=== PATIENT | male | born 1980 | race African-American/Black ===

== ENCOUNTER 2020-04-10 15:16 | Inpatient (IN) | payer MEDICAID ==
[~2020-04-10] VITALS: Ht 175.3 cm; Wt 99.8 kg
[2020-04-10 19:16] LABS: Basophils # (auto) 0 10 ^3/uL (0-0.2); Eosinophils # (auto) 0.1 10 ^3/uL (0-0.8); Hemoglobin 12.4 g/dL (13.5-17.5); Monocytes # (auto) 1.1 10 ^3/uL (0-1.3)
[2020-04-10 19:17] LABS: Basophils % (auto) 0.3 % (0.0-2.0); Eosinophils % (auto) 1.1 % (0.0-7.0); Hematocrit 35.5 % (41.0-53.0); Lymphocytes # (auto) 1.9 10 ^3/uL (0.4-5.4); Lymphocytes % (auto) 16.7 % (10.0-50.0); Mean Corpuscular Hemoglobin 31.4 pg (28.0-32.0); Mean Corpuscular Volume 89.7 fL (80.0-100.0); Monocytes % (auto) 9.3 % (0.0-12.0); Neutrophils # (auto) 8.4 10 ^3/uL (1.6-8.6); Neutrophils % (auto) 72.6 % (37.0-80.0); Nucleated Red Blood Cells % 0.1 %; Platelet Count (auto) 466 10^3/uL (140-450); Red Blood Cells 3.96 10^6/uL (4.5-5.90); Red Cell Distribution Width 15.4 % (11.8-14.3); White Blood Cell 11.6 10^3/uL (4.4-10.8)
[2020-04-10] MEDS ORDERED: SODIUM CHLORIDE 0.9% 1,000 ML IV ONE (20:15)
[2020-04-10] MEDS ORDERED: CLINDAMYCIN 900MG IV 50 ML IV ONE (20:15)
[2020-04-10] MEDS ORDERED: cefTRIAXone 1GM/50ML D5W 50 ML IV ONE (20:15)
[2020-04-10] MEDS ORDERED: ACETAMINOPHEN/CODEINE#3 (300/30mg) TAB PO ONE (20:30)
[2020-04-10] MEDS ORDERED: ONDANSETRON HCL 4 MG/2 ML VIAL IV ONE (20:30)
[2020-04-10 22:19] LABS: Albumin 2.9 g/dL (3.4-5.0); Calcium 9.4 mg/dL (8.5-10.1); Potassium 4.1 mmol/L (3.5-5.1)
[2020-04-10 22:24] LABS: BUN/Creatinine Ratio 9.6; Bilirubin, Total 0.8 mg/dL (0.2-1.0); Total Protein 8.7 g/dL (6.4-8.2)
[2020-04-11] MEDS ORDERED: MORPHINE SULF INJ 2 MG/ML SYRINGE 1ML IV PRN (00:30)
[2020-04-11] MEDS ORDERED: ACETAMINOPHEN 325 MG TAB PO PRN (00:30)
[2020-04-11] MEDS ORDERED: NITROGLYCERIN 0.4 MG SL TAB SL PRN (00:30)
[2020-04-11] MEDS ORDERED: DOCUSATE SOD 100 MG CAP PO PRN (00:30)
[2020-04-11] MEDS: MORPHINE SULFATE 4 MG/ML SYR/VIAL IV PRN ×3 (03:23→20:36)
[2020-04-11] MEDS: ONDANSETRON HCL 4 MG/2 ML VIAL IV PRN ×3 (03:23→20:36)
[2020-04-11 03:36] LABS: Basophils # (auto) 0.1 10 ^3/uL (0-0.2); Basophils % (auto) 0.4 % (0.0-2.0); Eosinophils # (auto) 0.1 10 ^3/uL (0-0.8); Hematocrit 35.7 % (41.0-53.0); Hemoglobin 12.7 g/dL (13.5-17.5); Lymphocytes # (auto) 2.4 10 ^3/uL (0.4-5.4); Lymphocytes % (auto) 19.9 % (10.0-50.0); Mean Corpuscular Hemoglobin 31.8 pg (28.0-32.0); Mean Corpuscular Hgb Conc. 35.6 g/dL (32.0-36.0); Mean Corpuscular Volume 89.2 fL (80.0-100.0); Monocytes # (auto) 0.9 10 ^3/uL (0-1.3); Monocytes % (auto) 7.3 % (0.0-12.0); Neutrophils # (auto) 8.7 10 ^3/uL (1.6-8.6); Neutrophils % (auto) 71.4 % (37.0-80.0); Nucleated Red Blood Cells % 0.1 %; Platelet Count (auto) 536 10^3/uL (140-450); Red Blood Cells 4.01 10^6/uL (4.5-5.90); Red Cell Distribution Width 15.7 % (11.8-14.3); White Blood Cell 12.2 10^3/uL (4.4-10.8)
[2020-04-11 04:06] LABS: Calcium 9.2 mg/dL (8.5-10.1); Potassium 3.9 mmol/L (3.5-5.1)
[2020-04-11 04:12] LABS: Albumin 2.8 g/dL (3.4-5.0); BUN/Creatinine Ratio 8.4; Bilirubin, Total 0.7 mg/dL (0.2-1.0); Total Protein 8.4 g/dL (6.4-8.2)
[2020-04-11] MEDS: CLINDAMYCIN 600MG IV 50 ML IV SCH ×3 (06:00→22:15)
[2020-04-11] MEDS: FAMOTIDINE 20 MG TAB PO SCH ×2 (09:07→22:14)
[2020-04-11] MEDS: ENOXAPARIN SOD 40 MG/0.4 ML SYRINGE SC SCH (09:07)
[2020-04-11] MEDS: cefTRIAXone 1GM/50ML D5W 50 ML IV SCH (09:07)
[2020-04-11] MEDS: ZINC SULFATE 220mg CAP or TAB PO SCH (09:07)
[2020-04-11] MEDS: MULTIPLE VITAMIN TAB PO SCH (09:07)
[2020-04-11] MEDS: ASCORBIC ACID 500 MG TAB PO SCH ×2 (09:07→22:14)
[2020-04-11] MEDS: HYDROcodone-ACET 5/325MG TAB PO PRN ×2 (09:08→16:48)
[2020-04-11] MEDS: Ensure HIGH Protein Chocolate 8oz Bottle PO SCH (20:01)
[2020-04-12] MEDS: ONDANSETRON HCL 4 MG/2 ML VIAL IV PRN ×2 (01:50→17:42)
[2020-04-12] MEDS: MORPHINE SULFATE 4 MG/ML SYR/VIAL IV PRN ×3 (01:50→17:42)
[2020-04-12 05:35] LABS: Basophils # (auto) 0 10 ^3/uL (0-0.2); Eosinophils # (auto) 0.2 10 ^3/uL (0-0.8); Eosinophils % (auto) 1.9 % (0.0-7.0); Monocytes # (auto) 0.7 10 ^3/uL (0-1.3); Neutrophils # (auto) 8.1 10 ^3/uL (1.6-8.6); Red Cell Distribution Width 15.5 % (11.8-14.3)
[2020-04-12 05:38] LABS: Basophils % (auto) 0.4 % (0.0-2.0); Hematocrit 35.4 % (41.0-53.0); Hemoglobin 11.8 g/dL (13.5-17.5); Lymphocytes # (auto) 2.1 10 ^3/uL (0.4-5.4); Lymphocytes % (auto) 19.2 % (10.0-50.0); Mean Corpuscular Hgb Conc. 33.4 g/dL (32.0-36.0); Mean Corpuscular Volume 89.8 fL (80.0-100.0); Neutrophils % (auto) 72.5 % (37.0-80.0); Platelet Count (auto) 507 10^3/uL (140-450); Red Blood Cells 3.94 10^6/uL (4.5-5.90); White Blood Cell 11.1 10^3/uL (4.4-10.8)
[2020-04-12 05:51] LABS: INR 0.97 (0.9-1.15)
[2020-04-12] MEDS: CLINDAMYCIN 600MG IV 50 ML IV SCH ×3 (06:00→22:00)
[2020-04-12 06:12] LABS: Albumin 2.6 g/dL (3.4-5.0); BUN/Creatinine Ratio 7.3; Bilirubin, Total 0.2 mg/dL (0.2-1.0); Calcium 9.1 mg/dL (8.5-10.1); Total Protein 8.1 g/dL (6.4-8.2)
[2020-04-12] MEDS: Ensure HIGH Protein Chocolate 8oz Bottle PO SCH ×3 (08:00→22:30)
[2020-04-12] MEDS: cefTRIAXone 1GM/50ML D5W 50 ML IV SCH (08:56)
[2020-04-12] MEDS: MULTIPLE VITAMIN TAB PO SCH (10:18)
[2020-04-12] MEDS: ZINC SULFATE 220mg CAP or TAB PO SCH (10:18)
[2020-04-12] MEDS: ENOXAPARIN SOD 40 MG/0.4 ML SYRINGE SC SCH (10:18)
[2020-04-12] MEDS: ASCORBIC ACID 500 MG TAB PO SCH ×2 (10:18→22:30)
[2020-04-12] MEDS: FAMOTIDINE 20 MG TAB PO SCH ×2 (10:18→22:30)
[2020-04-13] MEDS: ONDANSETRON HCL 4 MG/2 ML VIAL IV PRN ×2 (01:00→06:20)
[2020-04-13] MEDS: MORPHINE SULFATE 4 MG/ML SYR/VIAL IV PRN ×4 (01:00→13:28)
[2020-04-13] MEDS: CLINDAMYCIN 600MG IV 50 ML IV SCH ×3 (06:20→20:55)
[2020-04-13] MEDS: Ensure HIGH Protein Chocolate 8oz Bottle PO SCH ×3 (08:00→19:00)
[2020-04-13 08:25] LABS: Basophils # (auto) 0 10 ^3/uL (0-0.2); Eosinophils # (auto) 0.3 10 ^3/uL (0-0.8); Monocytes # (auto) 0.8 10 ^3/uL (0-1.3)
[2020-04-13 08:27] LABS: Basophils % (auto) 0.2 % (0.0-2.0); Eosinophils % (auto) 2.3 % (0.0-7.0); Hematocrit 32.9 % (41.0-53.0); Hemoglobin 10.9 g/dL (13.5-17.5); Lymphocytes # (auto) 2.4 10 ^3/uL (0.4-5.4); Lymphocytes % (auto) 18.8 % (10.0-50.0); Mean Corpuscular Hemoglobin 29.8 pg (28.0-32.0); Mean Corpuscular Hgb Conc. 33.2 g/dL (32.0-36.0); Mean Corpuscular Volume 89.5 fL (80.0-100.0); Monocytes % (auto) 6.5 % (0.0-12.0); Neutrophils # (auto) 9.1 10 ^3/uL (1.6-8.6); Neutrophils % (auto) 72.2 % (37.0-80.0); Platelet Count (auto) 540 10^3/uL (140-450); Red Blood Cells 3.67 10^6/uL (4.5-5.90); Red Cell Distribution Width 15.3 % (11.8-14.3); White Blood Cell 12.6 10^3/uL (4.4-10.8)
[2020-04-13 08:29] LABS: BUN/Creatinine Ratio 7.3; Calcium 8.4 mg/dL (8.5-10.1); Potassium 4.1 mmol/L (3.5-5.1)
[2020-04-13] MEDS: cefTRIAXone 1GM/50ML D5W 50 ML IV SCH (12:16)
[2020-04-13] MEDS: ASCORBIC ACID 500 MG TAB PO SCH ×2 (12:21→20:55)
[2020-04-13] MEDS: FAMOTIDINE 20 MG TAB PO SCH ×2 (12:22→20:55)
[2020-04-13] MEDS: ZINC SULFATE 220mg CAP or TAB PO SCH (12:22)
[2020-04-13] MEDS: MULTIPLE VITAMIN TAB PO SCH (12:22)
[2020-04-13] MEDS: ENOXAPARIN SOD 40 MG/0.4 ML SYRINGE SC SCH (12:22)
[2020-04-13 12:48] VITALS: BP 125/69
[2020-04-13] MEDS: HYDROcodone-ACET 5/325MG TAB PO PRN ×2 (13:28→18:00)
[2020-04-13 17:00] VITALS: BP 129/78
[2020-04-14] VITALS: BP 121/77
[2020-04-14] MEDS: MORPHINE SULFATE 4 MG/ML SYR/VIAL IV PRN ×2 (02:19→09:32)
[2020-04-14 05:54] LABS: Basophils # (auto) 0 10 ^3/uL (0-0.2); Eosinophils # (auto) 0.3 10 ^3/uL (0-0.8); Hemoglobin 11.3 g/dL (13.5-17.5); Lymphocytes # (auto) 1.9 10 ^3/uL (0.4-5.4); Monocytes % (auto) 6.3 % (0.0-12.0); Red Blood Cells 3.77 10^6/uL (4.5-5.90); Red Cell Distribution Width 15.3 % (11.8-14.3)
[2020-04-14 05:55] LABS: Basophils % (auto) 0.4 % (0.0-2.0); Eosinophils % (auto) 2.9 % (0.0-7.0); Hematocrit 33.7 % (41.0-53.0); Lymphocytes % (auto) 18.2 % (10.0-50.0); Mean Corpuscular Hgb Conc. 33.6 g/dL (32.0-36.0); Mean Corpuscular Volume 89.4 fL (80.0-100.0); Monocytes # (auto) 0.6 10 ^3/uL (0-1.3); Neutrophils # (auto) 7.4 10 ^3/uL (1.6-8.6); Neutrophils % (auto) 72.2 % (37.0-80.0); Nucleated Red Blood Cells % 0.1 %; Platelet Count (auto) 554 10^3/uL (140-450); White Blood Cell 10.2 10^3/uL (4.4-10.8)
[2020-04-14 06:12] LABS: BUN/Creatinine Ratio 10.4; Calcium 8.6 mg/dL (8.5-10.1)
[2020-04-14] MEDS: CLINDAMYCIN 600MG IV 50 ML IV SCH ×2 (06:35→14:00)
[2020-04-14 08:00] VITALS: BP 135/82
[2020-04-14] MEDS: Ensure HIGH Protein Chocolate 8oz Bottle PO SCH ×2 (08:00→12:00)
[2020-04-14] MEDS: cefTRIAXone 1GM/50ML D5W 50 ML IV SCH (09:22)
[2020-04-14] MEDS: FAMOTIDINE 20 MG TAB PO SCH (10:16)
[2020-04-14] MEDS: MULTIPLE VITAMIN TAB PO SCH (10:16)
[2020-04-14] MEDS: ZINC SULFATE 220mg CAP or TAB PO SCH (10:16)
[2020-04-14] MEDS: ENOXAPARIN SOD 40 MG/0.4 ML SYRINGE SC SCH (10:16)
[2020-04-14] MEDS: ASCORBIC ACID 500 MG TAB PO SCH (10:16)
[2020-04-14] MEDS: HYDROcodone-ACET 5/325MG TAB PO PRN (15:18)
== END 2020-04-14 16:00 | disposition home or self-care (01) | DRG 720 ==
LOC: ER 15:16 → TELE 15:17 → TELE-CENTR 04-13 08:58
PROVIDERS: ADMIT Nurse Practitioner Family; ATTEND Internal Medicine
DX: A41.9 Sepsis, unspecified organism (principal); L03.116 Cellulitis of left lower limb; E87.1 Hypo-osmolality and hyponatremia; D63.8 Anemia in other chronic diseases classified elsewhere; E44.0 Moderate protein-calorie malnutrition; E66.9 Obesity, unspecified; Z20.828 Contact with and (suspected) exposure to other viral communicable diseases; D47.3 Essential (hemorrhagic) thrombocythemia; E88.09 Other disorders of plasma-protein metabolism, not elsewhere classified; Z68.32 Body mass index [BMI] 32.0-32.9, adult
CPT/HCPCS: 36415; 73630; 73700; 80048; 80053; 83605; 84550; 85025; 85610; 87040; 87426; 93971; 96365; 96366; 96375; G0378; J0696; J2405; J3490

== ENCOUNTER 2022-02-09 23:52 | Emergency (ER) | payer OTHER ==
[~2022-02-09] VITALS: Ht 177.8 cm; Wt 111.2 kg
[2022-02-10 00:08] VITALS: BP 148/87
[2022-02-10] MEDS ORDERED: HYDR-4902 PO (00:14)
[2022-02-10] MEDS ORDERED: AMOX-277 PO (00:14)
== END 2022-02-10 00:19 | disposition home or self-care (01) ==
LOC: ER 23:52
DX: K08.89 Other specified disorders of teeth and supporting structures (principal); Z79.899 Other long term (current) drug therapy

== ENCOUNTER 2022-03-14 01:27 | Emergency (ER) | payer OTHER ==
[~2022-03-14] VITALS: Ht 177.8 cm; Wt 111.8 kg
[~2022-03-14 01:27] MED LIST: AMOX-277 PO; HYDR-4902 PO
[2022-03-14 01:54] VITALS: BP 135/94
[2022-03-14] MEDS ORDERED: AMOX-277 PO (03:09)
[2022-03-14] MEDS ORDERED: LORazepam 0.5 MG TAB PO ONE (03:15)
== END 2022-03-14 06:02 | disposition home or self-care (01) ==
LOC: ER 01:27
DX: J06.9 Acute upper respiratory infection, unspecified (principal); F41.9 Anxiety disorder, unspecified; F12.10 Cannabis abuse, uncomplicated; F17.210 Nicotine dependence, cigarettes, uncomplicated

== ENCOUNTER 2022-04-13 20:41 | Emergency (ER) | payer OTHER | END 2022-04-13 21:08 | disposition left against medical advice (07) | LOC: ER 20:41 | DX: R51.9 Headache, unspecified (principal); Z53.21 Procedure and treatment not carried out due to patient leaving prior to being seen by health care provider ==

== ENCOUNTER 2022-04-24 00:18 | Emergency (ER) | payer OTHER ==
[~2022-04-24] VITALS: Ht 180.3 cm; Wt 100.0 kg
[2022-04-24 02:39] VITALS: BP 144/95
== END 2022-04-24 02:57 | disposition home or self-care (01) ==
LOC: ER 00:18
DX: Z00.00 Encounter for general adult medical examination without abnormal findings (principal); F17.210 Nicotine dependence, cigarettes, uncomplicated; Z79.2 Long term (current) use of antibiotics; Z79.899 Other long term (current) drug therapy

== ENCOUNTER 2022-05-01 05:34 | Emergency (ER) | payer OTHER ==
[~2022-05-01] VITALS: Ht 177.8 cm; Wt 100.0 kg
[2022-05-01 05:34] VITALS: BP 135/92
== END 2022-05-01 07:54 | disposition left against medical advice (07) ==
LOC: ER 05:36
DX: M54.9 Dorsalgia, unspecified (principal); F17.210 Nicotine dependence, cigarettes, uncomplicated; Z79.2 Long term (current) use of antibiotics; Z79.899 Other long term (current) drug therapy

== ENCOUNTER 2022-07-11 20:34 | Emergency (ER) | payer OTHER ==
[~2022-07-11] VITALS: Ht 180.3 cm; Wt 102.0 kg
[2022-07-11] MEDS ORDERED: ACETAMINOPHEN 325 MG TAB PO ONE (21:15)
[2022-07-12 00:29] VITALS: BP 156/91
[2022-07-12] MEDS ORDERED: AMOX-277 PO (01:38)
[2022-07-12] MEDS ORDERED: IBUP800T27 PO (01:38)
[2022-07-12] MEDS ORDERED: BENZOCAINE (DENTAL) 20 % SPRAY 60ML MT ONE (02:00)
== END 2022-07-12 04:24 | disposition home or self-care (01) ==
LOC: ER 20:34
DX: K08.89 Other specified disorders of teeth and supporting structures (principal); G43.909 Migraine, unspecified, not intractable, without status migrainosus; F17.210 Nicotine dependence, cigarettes, uncomplicated; F12.10 Cannabis abuse, uncomplicated; Z88.1 Allergy status to other antibiotic agents
CPT/HCPCS: 70450; 71250; 72125; 74176

== ENCOUNTER 2024-06-24 16:03 | Emergency (ER) | payer OTHER ==
[~2024-06-24] VITALS: Ht 177.8 cm; Wt 101.7 kg
[~2024-06-24 16:03] MED LIST changes: -AMOX-277 PO; +AMOX875T4 PO; +IBUP-1456 PO
[2024-06-24] MEDS ORDERED: AUG875T PO (16:26)
[2024-06-24] MEDS ORDERED: IBUP-1455 PO (16:26)
--- NOTE | 2024-06-24 16:27 | ED.PDOC ---
Eye-HPI HPI Comments Patient complaining of right lower molar pain x1 month. States pain has been intermittent. He was initially prescribed antibiotics but then in his sister got sick so she took his antibiotics. States he did not finish him. He reports having appointment with dentist on July 04. He has been having continued worsening pain. Chief Complaint: Tooth Pain Time Seen by MD: 16:11 Primary Care Provider: UNKNOWN Reviewed Notes: Nurses Notes Allergies: Coded Allergies: NO KNOWN ALLERGIES (Unverified , 04/10/20) Home Meds Active Scripts Ibuprofen (Ibuprofen) 800 Mg Tab, 1 TAB PO TID PRN, #30 TAB 0 Refills Prov:LANE WESLEY 07/12/22 Amoxicillin & Pot Clavulanate (Amoxicillin/Potassium Cla) 875 Mg Tab, 1 TAB PO BID for 7 Days, #14 TAB 0 Refills Prov:LANE WESLEY 07/12/22 Amoxicillin & Pot Clavulanate (Amoxicillin/Potassium Cla) 875 Mg Tab, 1 TAB PO BID for 7 Days, #14 TAB 0 Refills Prov:LANE WESLEY 03/14/22 Amoxicillin & Pot Clavulanate (Amoxicillin/Potassium Cla) 875 Mg Tab, 1 TAB PO BID for 7 Days, #14 TAB Prov:ROJELIO CHUA DO 02/10/22 Hydrocodone-Acetaminophen (Hydrocodone Bitartrate/AC 5-325 mg) 1 Tab Tab, 1 TAB PO [id number] PRN for 5 Days, #10 TAB Prov:ROJELIO CHUA DO 02/10/22 Information Source: Patient Mode of Arrival: Ambulatory Past Medical History PAST MEDICAL HISTORY: Denies Surgical History: Denies all surgeries Family History Family History: Unknown Social History Smoker: Cigarettes, Less Than 1 Pack/Day Alcohol: Denies ETOH Use Drugs: Marijuana Lives In: Home Constitutional: denies: chills, diaphoresis, fatigue, fever, malaise, sweats, weakness, others EENTM: denies: blurred vision, double vision, ear bleeding, ear discharge, ear drainage, ear pain, ear ringing, eye pain, eye redness, hearing loss, mouth pain, mouth swelling, nasal discharge, nose bleeding, nose congestion, nose pain, photophobia, tearing, throat pain, throat swelling, voice changes, others Respiratory: denies: cough, hemoptysis, orthopnea, SOB at rest, shortness of breath, SOB with excertion, stridor, wheezing, others Cardiovascular: denies: chest pain, dizzy spells, diaphoresis, Dyspnea on exertion, edema, irregular heart beat, left arm pain, lightheadedness, palpitat ions, PND, syncope, others Gastrointestinal: denies: abdomen distended, abdominal pain, blood streaked bow els, constipated, diarrhea, dysphagia, difficulty swallowing, hematemesis, melena, nausea, poor appetite, poor fluid intake, rectal bleeding, rectal pain, vomiting, others Genitourinary: denies: burning, dysuria, flank pain, frequency, hematuria, incontinence, penile discharge, penile sore, pain, testicle pain, testicle swelling, urgency, others Neurological: denies: dizziness, fainting, headache, left sided numbness, left sided weakness, numbness, paresthesia, pre-existing deficit, right sided numbness, right sided weakness, seizure, speech problems, tingling, tremors, weakness, others Musculoskeletal: denies: back pain, gout, joint pain, joint swelling, muscle pain, muscle stiffness, neck pain, others Integumetry: denies: bruises, change in color, change in hair/nails, dryness, laceration, lesions, lumps, rash, wounds, others Allergic/Immunocompromised: denies: Difficulty Healing, Frequent Infections, Hives, Itching, others Hematologic/Lymphatic: denies: anemia, blood clots, easy bleeding, easy bruising, swollen glands, others Physical Exam General Appearance: No Apparent Distress, Normal HEENT: Normal ENT Inspection, Pharynx Normal, TMs Normal Neck: Full Range of Motion, Non-Tender, Normal, Normal Inspection Respiratory: Chest Non-Tender, Lungs Clear, No Accessory Muscle Use, No R espiratory Distress, Normal Breath Sounds Cardiovascular: No Edema, No JVD, No Murmur, No Gallop, Normal Peripheral Pulses, Regular Rate/Rhythm Breast Exam: Deferred Gastrointestinal: No Organomegaly, Non Tender, No Pulsatile Mass, Normal Bowel Sounds, Soft Genitalia: Deferred Pelvic: Deferred Rectal: Deferred Extremities: No calf tenderness, Normal capillary refill, Normal inspection, Normal range of motion, Non-tender, No pedal edema Musculoskeletal : Apperance: Normal Neurologic: Alert, clinical data research II-XII nml as Tested, No Motor Deficits, Normal Affect, Normal Mood, No Sensory Deficits Cerebellar Function: Normal Reflexes: Normal Skin: Dry, Normal Color, Warm Lymphatic: No Adenopathy Was a procedure done? Was a procedure done?: No EENT DIFF Eye: N/A Mouth: Other (Dental caries, dental fracture, dental abscess) X-Ray, Labs, Meds, VS Vital Signs Date Time Temp Pulse Resp B/P (MAP) Pulse Ox O2 Delivery O2 Flow Rate FiO2 06/24/24 16:07 98.0 83 22 126/87 (100) 98 X-Ray, Labs, Meds, VS Comment Imaging: X-rays and CT scans were reviewed and interpreted by this provider, im aging shows no fractures and no pathological disease. Pending radiology review. Laboratory: Labs reviewed and interpreted by this provider. No significant abnormalities noted. Patient has prior medical visits reviewed. Med reconciliation performed Vital signs reviewed Time of 1ST Reevaluation: 16:26 Reevaluation 1ST: Improved Patient Education/Counseling: Diagnosis, Treatment, Need For Follow Up (Patient advised to follow-up in the emergency room in the next 24 to 48 hours if symptoms do not improve. Advised follow-up with PCP in the next 3 to 5 days. Patient verbalized understanding. ) Family Education/Counseling: Diagnosis Departure 1 Departure Time of Disposition: 16:25 Impression: Primary Impression: Toothache Disposition: HOME / SELF CARE / HOMELESS Condition: Fair e-Prescriptions Ibuprofen Micronized (Ibuprofen) 800 Mg Tab 800 MG PO TID PRN, #30 TAB Prov: MALACHI COTE 06/24/24 Amoxicillin & Pot Clavulanate (AUGMENTIN TABLET) 875 Mg Tb 875 MG PO BID for 7 Days, #14 TAB Prov: MALACHI COTE 06/24/24 Discharged With: Self Critical Care Note Critical Care Time?: No Stability Stability form required: No Heart Score Heart Score: Heart Score Response (Comments) Value History N/A 0 EKG N/A 0 Age N/A 0 Risk Factors N/A 0 Troponin N/A 0 Total 0 MALACHI COTE Jun 24, 2024 16:26
[2024-06-24 17:26] VITALS: BP 124/87; PULSE 80; RESP 15; TEMP 97.8; O2SAT 99
== END 2024-06-24 17:28 | disposition home or self-care (01) ==
LOC: ER 16:03
DX: K08.89 Other specified disorders of teeth and supporting structures (principal); F17.210 Nicotine dependence, cigarettes, uncomplicated

== ENCOUNTER 2024-07-22 11:36 | Emergency (ER) | payer OTHER ==
[~2024-07-22] VITALS: Ht 175.3 cm; Wt 102.4 kg
[~2024-07-22 11:36] MED LIST changes: +AUG875T PO; +IBUP-1455 PO
[2024-07-22 11:56] VITALS: BP 157/102; PULSE 82; RESP 18; TEMP 97.9; O2SAT 99
--- NOTE | 2024-07-22 13:19 | ED.PDOC ---
History of Present Illness(SKN HPI Comments 44 YEAR OLD MALE PRESENTS FOR ABSCESS TO MID CHEST ONSET: 6 MONTHS. TRIED IBU WITH MINIMAL IMPROVEMENT Chief Complaint: Abscess Time Seen by MD: 12:18 History of Present Illness: Nurses Notes, Medications, Allergies Allergies: Coded Allergies: NO KNOWN ALLERGIES (Unverified , 04/10/20) Home Meds Active Scripts Acetaminophen (Acetaminophen) 500 Mg Tab, 500 MG PO Q6HP PRN for 5 Days, #20 TAB 0 Refills Prov:BETTY GARAY [employer]DER 07/22/24 Sulfamethoxazole W/Trimethopri (Bactrim Ds Tablet) 1 Tab Tb, 1 TAB PO BID for 7 Days, #14 TAB 0 Refills Prov:BETTY GARAY [employer]OL[employer] 07/22/24 Ibuprofen Micronized (Ibuprofen) 800 Mg Tab, 800 MG PO TID PRN, #30 TAB Prov:MALACHI COTEP 06/24/24 Amoxicillin & Pot Clavulanate (AUGMENTIN TABLET) 875 Mg Tb, 875 MG PO BID for 7 Days, #14 TAB Prov:MALACHI COTEP 06/24/24 Ibuprofen (Ibuprofen) 800 Mg Tab, 1 TAB PO TID PRN, #30 TAB 0 Refills Prov:LANE WESLEY 07/12/22 Amoxicillin & Pot Clavulanate (Amoxicillin/Potassium Cla) 875 Mg Tab, 1 TAB PO BID for 7 Days, #14 TAB 0 Refills Prov:LANE WESLEY 07/12/22 Amoxicillin & Pot Clavulanate (Amoxicillin/Potassium Cla) 875 Mg Tab, 1 TAB PO BID for 7 Days, #14 TAB 0 Refills Prov:LANE WESLEY 03/14/22 Amoxicillin & Pot Clavulanate (Amoxicillin/Potassium Cla) 875 Mg Tab, 1 TAB PO BID for 7 Days, #14 TAB Prov:ROJELIO CHUA DO 02/10/22 Hydrocodone-Acetaminophen (Hydrocodone Bitartrate/AC 5-325 mg) 1 Tab Tab, 1 TAB PO [id number] PRN for 5 Days, #10 TAB Prov:ROJELIO CHUA DO 02/10/22 Mode of Arrival: Ambulatory Past Medical History PAST MEDICAL HISTORY: Denies Surgical History: Denies all surgeries Family History Family History: Unknown Social History Smoker: Cigarettes, Less Than 1 Pack/Day Alcohol: Denies ETOH Use Drugs: Marijuana Lives In: Home All Other Systems: Reviewed and Negative (per hpi) Physical Exam General Appearance: No Apparent Distress, Normal HEENT: Normal ENT Inspection, Pharynx Normal, TMs Normal Neck: Full Range of Motion, Non-Tender, Normal, Normal Inspection Respiratory: Chest Non-Tender, Lungs Clear, No Accessory Muscle Use, No Respiratory Distress, Normal Breath Sounds Cardiovascular: No Edema, No JVD, No Murmur, No Gallop, Normal Peripheral Pulses, Regular Rate/Rhythm, Other (fluctuant abscess to mid chest. no ttp) Breast Exam: Deferred Gastrointestinal: No Organomegaly, Non Tender, No Pulsatile Mass, Normal Bowel Sounds, Soft Genitalia: Deferred Pelvic: Deferred Rectal: Deferred Extremities: No calf tenderness, Normal capillary refill, Normal inspection, Normal range of motion, Non-tender, No pedal edema Musculoskeletal : Apperance: Normal Neurologic: Alert, table cover folder II-XII nml as Tested, No Motor Deficits, Normal Affect, Normal Mood, No Sensory Deficits Cerebellar Function: Normal Reflexes: Normal Skin: Dry, Normal Color, Warm Lymphatic: No Adenopathy Was a procedure done? Was a procedure done?: Yes Sedation Sedation?: No Incision and Drainage Incision and Drainage: Abscess Anesthetic: Lidocaine with Epi Preparation: Betadine Incision and Wound: Pus, Blood, Irrigated, Packed Informed consent obtained: Yes Risks/benefits/alt described: Yes Differential Diagnosis (INTG) Differential Diagnosis: Abrasion Abscess: Abscess X-Ray, Labs, Meds, VS Vital Signs Date Time Temp Pulse Resp B/P (MAP) Pulse Ox O2 Delivery O2 Flow Rate FiO2 07/22/24 11:56 97.9 82 18 157/102 (120) 99 97.9 X-Ray, Labs, Meds, VS Comment This patient presents with signs and symptoms consistent with a abscess. The abscess is localized without any evidence of deep soft tissue infection based on physical examination. The patient required incision and drainage. Differential diagnosis considered but not limited to: abscess, folliculitis, cellulitis. I also considered deep space infection, necrotizing fasciitis, sepsis, however, this is less likely as the patient does not have rapid expanding erythema or pain out of proportion to suggest necrotizing fasciitis. There is no evidence of sepsis on both a review of their vitals and clinical exam. Procedure Note: Verbal informed consent was obtained from the patient. I discussed the indications, benefits, alternatives and complications to performing an incision and drainage. The patient understands the risks include, but are not limited to scarring, underlying structure injury, bleeding, nerve injury, new infection, and resultant disability. The skin overlying the abscess was prepared with Betadine The skin surrounding the abscess was locally anesthetized using 1% Lidocaine with EPI An incision using a number 11 blade scalpel was made overlying the abscess. The incision was 1 cm long. Loculations were bluntly dissected using a hemostat. Careful exploration of the abscess cavity demonstrated no foreign body. The abscess cavity was packed with sterile packing. The wound was then dressed with sterile gauze. The wound was hemostatic at the conclusion of the procedure. The patient did not appear to suf altagracia any complications as a result of the procedure. The patient was given Bactrim and will f/u with PMD 3-5 days or return to the ER sooner if it worsens. The patient is given instructions and materials to repack the wound DAILY. The patient was counseled in regard to the diagnosis and management of the condition and verbalized understanding of this. The patient understands to return to the ER or seek immediate medical attention if the symptoms worsen. Time of 1ST Reevaluation: 14:00 Reevaluation 1ST: Improved Patient Education/Counseling: Diagnosis, Treatment Family Education/Counseling: Diagnosis, Treatment Departure 1 Departure Time of Disposition: 14:13 Impression: Primary Impression: Abscess Disposition: 01 HOME / SELF CARE / HOMELESS Condition: Stable e-Prescriptions Acetaminophen (Acetaminophen) 500 Mg Tab 500 MG PO Q6HP PRN for 5 Days, #20 TAB 0 Refills Prov: BETTY GARAY NP 07/22/24 Sulfamethoxazole W/Trimethopri (Bactrim Ds Tablet) 1 Tab Tb 1 TAB PO BID for 7 Days, #14 TAB 0 Refills Prov: BETTY GARAY NP 07/22/24 Critical Care Note Critical Care Time?: No Stability Stability form required: No Heart Score Heart Score: Heart Score Response (Comments) Value History N/A 0 EKG N/A 0 Age N/A 0 Risk Factors N/A 0 Troponin N/A 0 Total 0 BETTY GARAY NP Jul 22, 2024 13:19
[2024-07-22] MEDS: LIDOCAINE W/ EPINEPHRINE 1% 20ML VIAL ID ONE (13:38)
[2024-07-22] MEDS ORDERED: BACDST PO (14:14)
[2024-07-22] MEDS ORDERED: ACET500T58 PO (14:14)
== END 2024-07-22 14:35 | disposition home or self-care (01) ==
LOC: ER 11:36
DX: L02.213 Cutaneous abscess of chest wall (principal); F17.210 Nicotine dependence, cigarettes, uncomplicated; F12.90 Cannabis use, unspecified, uncomplicated; Z79.899 Other long term (current) drug therapy
CPT/HCPCS: 10060

== ENCOUNTER 2024-07-24 14:03 | Emergency (ER) | payer OTHER ==
[~2024-07-24] VITALS: Ht 175.3 cm; Wt 102.9 kg
[~2024-07-24 14:03] MED LIST changes: +ACET500T58 PO; +BACDST PO
[2024-07-24 14:38] VITALS: BP 136/93; PULSE 107; RESP 16; TEMP 98.4; O2SAT 98
--- NOTE | 2024-07-24 14:51 | ED.PDOC ---
History of Present Illness HPI Comments A 44 YEAR OLD MALE PRESENTS TO THE ED WITH CHIEF COMPLAINT OF WOUND RECHECK. PATIENT REPORTS THAT HE HAD AN ABSCESS TO HIS RIGHT UPPER CHEST WALL DRAINED ON 07/22/24 AND WAS ADVISED TO COME BACK TO THE ED FOR RECHECK OF THE WOUND. PATIENT RELAYS THAT HE HAS NOT HAD ANY EXCESS PAIN OR PROBLEMS WITH HIS WOUND. PATIENT DENIES ANY EXCESS DRAINAGE, BLEEDING, PAIN, OR FEVER. NO OTHER SYMPTOMS REPORTED AT THIS TIME OF CARE. Chief Complaint: Wound Check Time Seen by MD: 14:40 Reviewed Notes: Nurses Notes, Medications, Allergies Allergies: Coded Allergies: NO KNOWN ALLERGIES (Unverified , 04/10/20) Home Meds Active Scripts Acetaminophen (Acetaminophen) 500 Mg Tab, 500 MG PO Q6HP PRN for 5 Days, #20 TAB 0 Refills Prov:BETTY GARAY NP 07/22/24 Sulfamethoxazole W/Trimethopri (Bactrim Ds Tablet) 1 Tab Tb, 1 TAB PO BID for 7 Days, #14 TAB 0 Refills Prov:BETTY GARAY NP 07/22/24 Ibuprofen Micronized (Ibuprofen) 800 Mg Tab, 800 MG PO TID PRN, #30 TAB Prov:MALACHI COTEP 06/24/24 Amoxicillin & Pot Clavulanate (AUGMENTIN TABLET) 875 Mg Tb, 875 MG PO BID for 7 Days, #14 TAB Prov:MALACHI COTE [employer] 06/24/24 Ibuprofen (Ibuprofen) 800 Mg Tab, 1 TAB PO TID PRN, #30 TAB 0 Refills Prov:LANE WESLEY 07/12/22 Amoxicillin & Pot Clavulanate (Amoxicillin/Potassium Cla) 875 Mg Tab, 1 TAB PO BID for 7 Days, #14 TAB 0 Refills Prov:LANE WESLEY 07/12/22 Amoxicillin & Pot Clavulanate (Amoxicillin/Potassium Cla) 875 Mg Tab, 1 TAB PO BID for 7 Days, #14 TAB 0 Refills Prov:LANE WESLEY 03/14/22 Amoxicillin & Pot Clavulanate (Amoxicillin/Potassium Cla) 875 Mg Tab, 1 TAB PO BID for 7 Days, #14 TAB Prov:ROJELIO CHUA DO 02/10/22 Hydrocodone-Acetaminophen (Hydrocodone Bitartrate/AC 5-325 mg) 1 Tab Tab, 1 TAB PO [id number] PRN for 5 Days, #10 TAB Prov:ROJELIO CHUA DO 02/10/22 Information Source: Patient Mode of Arrival: Ambulatory Severity: Mild Timing: Days Duration: Since onset Prehospital treatment: None Medication Refill: For: Other (RIGHT UPPER CHEST WALL ABSCESS WOUND RECHECK. ) Past Medical History PAST MEDICAL HISTORY: Denies Surgical History: Denies all surgeries Family History Family History: Reviewed,noncontributory to illness, Unknown Social History Smoker: Cigarettes, Less Than 1 Pack/Day Alcohol: Denies ETOH Use Drugs: Marijuana Lives In: Home Constitutional: denies: chills, diaphoresis, fatigue, fever, malaise, sweats, weakness, others EENTM: denies: blurred vision, double vision, ear bleeding, ear discharge, ear drainage, ear pain, ear ringing, eye pain, eye redness, hearing loss, mouth pain, mouth swelling, nasal discharge, nose bleeding, nose congestion, nose pain, photophobia, tearing, throat pain, throat swelling, voice changes, others Respiratory: denies: cough, hemoptysis, orthopnea, SOB at rest, shortness of breath, SOB with excertion, stridor, wheezing, others Cardiovascular: denies: chest pain, dizzy spells, diaphoresis, Dyspnea on exertion, edema, irregular heart beat, left arm pain, lightheadedness, palpitations, PND, syncope, others Gastrointestinal: denies: abdomen distended, abdominal pain, blood streaked bowels, constipated, diarrhea, dysphagia, difficulty swallowing, hematemesis, melena, nausea, poor appetite, poor fluid intake, rectal bleeding, rectal pain, vomiting, others Genitourinary: denies: burning, dysuria, flank pain, frequency, hematuria, incontinence, penile discharge, penile sore, pain, testicle pain, testicle swelling, urgency, others Neurological: denies: dizziness, fainting, headache, left sided numbness, left sided weakness, numbness, paresthesia, pre-existing deficit, right sided numbness, right sided weakness, seizure, speech problems, tingling, tremors, weakness, others Musculoskeletal: denies: back pain, gout, joint pain, joint swelling, muscle pain, muscle stiffness, neck pain, others Integumetry: reports: wounds (TO CHEST); denies: bruises, change in color, change in hair/nails, dryness, laceration, lesions, lumps, rash, others Allergic/Immunocompromised: denies: Difficulty Healing, Frequent Infections, Hives, Itching, others Hematologic/Lymphatic: denies: anemia, blood clots, easy bleeding, easy bruising, swollen glands, others Endocrine: denies: excessive hunger, excessive sweating, excessive thirst, excessive urination, flushing, intolerance to cold, intolerance to heat, unexplained weight gain, unexplained weight loss, others Psychiatric: denies: anxiety, bipolar disorder, depression, hopeless, panic disorder, schizophrenia, sleepless, suicidal, others All Other Systems: Reviewed and Negative Physical Exam General Appearance: No Apparent Distress, Obese HEENT: Normal ENT Inspection, PERRL/EOMI Neck: Full Range of Motion, Non-Tender, Normal, Normal Inspection Respiratory: Chest Non-Tender, Lungs Clear, No Accessory Muscle Use, No Respiratory Distress, Normal Breath Sounds Cardiovascular: No Edema, No JVD, No Murmur, No Gallop, Normal Peripheral Pulses, Regular Rate/Rhythm Breast Exam: Deferred Gastrointestinal: No Organomegaly, Non Tender, No Pulsatile Mass, Normal Bowel Sounds, Soft Genitalia: Deferred Pelvic: Deferred Rectal: Deferred Extremities: No calf tenderness, Normal capillary refill, Normal inspection, Normal range of motion, Non-tender, No pedal edema Musculoskeletal : Apperance: Normal Neurologic: Alert, regional education manager II-XII nml as Tested, No Motor Deficits, Normal Affect, Normal Mood, No Sensory Deficits Cerebellar Function: Normal Reflexes: Normal Skin: Dry, Normal Color, Warm, Wounds (ABSCESS WOUND ON RIGHT UPPER CHEST WALL HEALING, NO PUS DRAINAGE AND SWELLING. ) Peripheral Pulses: 2+ carotid (R), 2+ carotid (L) Lymphatic: No Adenopathy Was a procedure done? Was a procedure done?: No Differential Dx Considerations may include: ABSCESS WOUND RECHECK OF RIGHT UPPER CHEST WALL X-Ray, Labs, Meds, VS Vital Signs Date Time Temp Pulse Resp B/P (MAP) Pulse Ox O2 Delivery O2 Flow Rate FiO2 07/24/24 14:38 98.4 107 16 136/93 (107) 98 98.4 07/24/24 14:38 107 16 98 Room Air 07/24/24 14:27 98.4 107 16 136/93 (107) 98 98.4 X-Ray, Labs, Meds, VS Comment EXTERNAL MEDICAL RECORDS REVIEWED: 07/22/24 FOR ABSCESS INDEPENDENT HISTORIANS: [NONE] SOCIAL DETERMINANTS OF HEALTH: [NONE] LABS ORDERED: NONE REVIEWED AND INTERPRETED RESULTS: NONE IMAGING ORDERED: NONE TREATMENTS ORDERED: RIGHT UPPER CHEST WALL ABSCESS WOUND CLEANED WITH NORMAL SALINE, RE-PACKED IT AND WRAPPED. PROCEDURES PERFORMED: NONE CRITICAL CARE TIME: NONE I HAVE DISCUSSED THE PATIENT WITH THE ATTENDING PHYSICIAN DR. TURNER AND HE AGREES WITH THE PATIENT'S PLAN OF CARE AND DISPOSITION. BASED ON HISTORY OF PRESENT ILLNESS, AND PHYSICAL EXAM, PATIENT WILL BE DISCHARGED HOME. DISCUSSED PLAN FOR DISCHARGE HOME. ADVISED TO RETURN TO THE ED IN 2 DAYS FOR ONE MORE RECHECK. SHARED DECISION MAKING: DISCUSSED WITH PATIENT THAT THEIR WORKUP WAS NORMAL. PATIENT INSTRUCTED TO FOLLOW UP WITH PRIMARY CARE PROVIDER IN 1-2 DAYS FOR RE- EVALUATION OF SYMPTOMS. PATIENT VERBALIZES UNDERSTANDING TO RETURN TO ED FOR NEW OR WORSENING SYMPTOMS OR IF FOLLOW UP WITH PCP CANNOT BE OBTAINED. PATIENT FEELS COMFORTABLE GOING HOME AT THIS TIME. ALL QUESTIONS ADDRESSED AT TIME OF DISCHARGE. Time of 1ST Reevaluation: 14:48 Reevaluation 1ST: Unchanged Patient Education/Counseling: Diagnosis, Treatment Family Education/Counseling: No Family Present Departure 1 Departure Time of Disposition: 14:56 Impression: Primary Impression: Encounter for wound re-check Disposition: 01 HOME / SELF CARE / HOMELESS Condition: Stable Additional Instructions: FOLLOW-UP WITH PCP IN 1 TO 2 DAYS. TAKE MEDICATIONS PRESCRIBED. RETURN TO ED FOR ANY NEW OR WORSENING SYMPTOMS. Discharged With: Self Critical Care Note Critical Care Time?: No Stability Stability form required: No Heart Score Heart Score: Heart Score Response (Comments) Value History N/A 0 EKG N/A 0 Age N/A 0 Risk Factors N/A 0 Troponin N/A 0 Total 0 I personally scribed for JENNIFER ORTIZ ([email or web address]) on 07/24/24 at 14:51. Electronically submitted by Ed Poon ([email or web address]). JENNIFER ORTIZ Jul 24, 2024 14:51
== END 2024-07-24 14:52 | disposition home or self-care (01) ==
LOC: ER 14:09
DX: L02.213 Cutaneous abscess of chest wall (principal); Z48.00 Encounter for change or removal of nonsurgical wound dressing; F17.210 Nicotine dependence, cigarettes, uncomplicated; F12.90 Cannabis use, unspecified, uncomplicated; Z79.899 Other long term (current) drug therapy

== ENCOUNTER 2024-07-26 11:52 | Emergency (ER) | payer OTHER ==
[~2024-07-26] VITALS: Ht 175.3 cm; Wt 102.9 kg
--- NOTE | 2024-07-26 12:57 | ED.PDOC ---
History of Present Illness HPI Comments A 44 YEAR OLD MALE PRESENTS TO THE ED WITH COMPLAINT OF ABSCESS WOUND RECHECK. PATIENT STATES HE HAD AN ABSCESS ON HIS RIGHT UPPER CHEST WALL DRAINED 3 DAYS AGO AND HAD PACKING PLACED TWICE HERE IN THIS ED. PATIENT IS HERE IN THE ED TODAY TO HAVE THIS WOUND CHECKED AND PACKING REMOVED. PATIENT DENIES FEVER, CHILLS, SHORTNESS OF BREATH, CHEST PAIN, ABDOMINAL PAIN, NAUSEA, VOMITING, HEADACHE, OR OTHER COMPLAINTS. NO OTHER SYMPTOMS OR MODIFYING FACTORS AT THIS TIME. PATIENT IS ALERT, ORIENTED X 4, AND HAS STEADY GAIT. Chief Complaint: Wound Check Time Seen by MD: 12:01 Primary Care Provider: NONE Reviewed Notes: Nurses Notes, Medications, Allergies Allergies: Coded Allergies: NO KNOWN ALLERGIES (Unverified , 04/10/20) Home Meds Active Scripts Acetaminophen (Acetaminophen) 500 Mg Tab, 500 MG PO Q6HP PRN for 5 Days, #20 TAB 0 Refills Prov:BETTY GARAY NP 07/22/24 Sulfamethoxazole W/Trimethopri (Bactrim Ds Tablet) 1 Tab Tb, 1 TAB PO BID for 7 Days, #14 TAB 0 Refills Prov:BETTY GARAY [employer]LEMENTARY EDUCATION [employer]OR 07/22/24 Ibuprofen Micronized (Ibuprofen) 800 Mg Tab, 800 MG PO TID PRN, #30 TAB Prov:MALACHI COTEP 06/24/24 Amoxicillin & Pot Clavulanate (AUGMENTIN TABLET) 875 Mg Tb, 875 MG PO BID for 7 Days, #14 TAB Prov:MALACHI COTEP 06/24/24 Ibuprofen (Ibuprofen) 800 Mg Tab, 1 TAB PO TID PRN, #30 TAB 0 Refills Prov:LANE WESLEY 07/12/22 Amoxicillin & Pot Clavulanate (Amoxicillin/Potassium Cla) 875 Mg Tab, 1 TAB PO BID for 7 Days, #14 TAB 0 Refills Prov:LANE WESLEY 07/12/22 Amoxicillin & Pot Clavulanate (Amoxicillin/Potassium Cla) 875 Mg Tab, 1 TAB PO BID for 7 Days, #14 TAB 0 Refills Prov:LANE WESLEY 03/14/22 Amoxicillin & Pot Clavulanate (Amoxicillin/Potassium Cla) 875 Mg Tab, 1 TAB PO BID for 7 Days, #14 TAB Prov:ROJELIO CHUA DO 02/10/22 Hydrocodone-Acetaminophen (Hydrocodone Bitartrate/AC 5-325 mg) 1 Tab Tab, 1 TAB PO [id number] PRN for 5 Days, #10 TAB Prov:ROJELIO CHUA DO 02/10/22 Information Source: Patient Mode of Arrival: Ambulatory Severity: Mild Timing: Days Duration: Since onset, Days Prehospital treatment: None Medication Refill: For: Other (ABSCESS WOUND RECHECK) Past Medical History PAST MEDICAL HISTORY: Denies Surgical History: Denies all surgeries Family History Family History: Reviewed,noncontributory to illness, Unknown Social History Smoker: Cigarettes, Less Than 1 Pack/Day Alcohol: Denies ETOH Use Drugs: Marijuana Lives In: Home Constitutional: denies: chills, diaphoresis, fatigue, fever, malaise, sweats, weakness, others EENTM: denies: blurred vision, double vision, ear bleeding, ear discharge, ear drainage, ear pain, ear ringing, eye pain, eye redness, hearing loss, mouth pain, mouth swelling, nasal discharge, nose bleeding, nose congestion, nose pain, photophobia, tearing, throat pain, throat swelling, voice changes, others Respiratory: denies: cough, hemoptysis, orthopnea, SOB at rest, shortness of breath, SOB with excertion, stridor, wheezing, others Cardiovascular: denies: chest pain, dizzy spells, diaphoresis, Dyspnea on exertion, edema, irregular heart beat, left arm pain, lightheadedness, palpitations, PND, syncope, others Gastrointestinal: denies: abdomen distended, abdominal pain, blood streaked bowels, constipated, diarrhea, dysphagia, difficulty swallowing, hematemesis, melena, nausea, poor appetite, poor fluid intake, rectal bleeding, rectal pain, vomiting, others Genitourinary: denies: burning, dysuria, flank pain, frequency, hematuria, incontinence, penile discharge, penile sore, pain, testicle pain, testicle swelling, urgency, others Neurological: denies: dizziness, fainting, headache, left sided numbness, left sided weakness, numbness, paresthesia, pre-existing deficit, right sided numbne ss, right sided weakness, seizure, speech problems, tingling, tremors, weakness, others Musculoskeletal: denies: back pain, gout, joint pain, joint swelling, muscle pain, muscle stiffness, neck pain, others Integumetry: reports: wounds (RIGHT UPPER CHEST WALL ); denies: bruises, change in color, change in hair/nails, dryness, laceration, lesions, lumps, rash, others Allergic/Immunocompromised: denies: Difficulty Healing, Frequent Infections, Hives, Itching, others Hematologic/Lymphatic: denies: anemia, blood clots, easy bleeding, easy bruising, swollen glands, others Endocrine: denies: excessive hunger, excessive sweating, excessive thirst, excessive urination, flushing, intolerance to cold, intolerance to heat, unexplained weight gain, unexplained weight loss, others Psychiatric: denies: anxiety, bipolar disorder, depression, hopeless, panic disorder, schizophrenia, sleepless, suicidal, others All Other Systems: Reviewed and Negative Physical Exam General Appearance: No Apparent Distress, Obese HEENT: Normal ENT Inspection, PERRL/EOMI, Pharynx Normal, TMs Normal Neck: Full Range of Motion, Non-Tender, Normal, Normal Inspection Respiratory: Chest Non-Tender, Lungs Clear, No Accessory Muscle Use, No Respiratory Distress, Normal Breath Sounds Cardiovascular: No Edema, No JVD, No Murmur, No Gallop, Normal Peripheral Pulses, Regular Rate/Rhythm Breast Exam: Deferred Gastrointestinal: No Organomegaly, Non Tender, No Pulsatile Mass, Normal Bowel Sounds, Soft Genitalia: Deferred Pelvic: Deferred Rectal: Deferred Extremities: No calf tenderness, Normal capillary refill, Normal inspection, Normal range of motion, Non-tender, No pedal edema Musculoskeletal : Apperance: Normal Neurologic: Alert, ground wirer II-XII nml as Tested, No Motor Deficits, Normal Affect, Normal Mood, No Sensory Deficits Cerebellar Function: Normal Reflexes: Normal Skin: Dry, Normal Color, Warm, Wounds (ABSCESS WOUND ON RIGHT UPPER CHEST WALL HEALING, NO INFECTION SIGNS, NO REDNESS AND SWELLING. ) Peripheral Pulses: 2+ carotid (R), 2+ carotid (L) Lymphatic: No Adenopathy Was a procedure done? Was a procedure done?: No Differential Dx Considerations may include: ABSCESS WOUND RECHECK, WOUND INFECTION, PACKING REMOVAL X-Ray, Labs, Meds, VS Vital Signs Date Time Temp Pulse Resp B/P (MAP) Pulse Ox O2 Delivery O2 Flow Rate FiO2 07/26/24 12:00 97.8 115 18 106/61 (76) 97 97.8 X-Ray, Labs, Meds, VS Comment EXTERNAL MEDICAL RECORDS REVIEWED: [NONE] INDEPENDENT HISTORIANS: [NONE] SOCIAL DETERMINANTS OF HEALTH: [NONE] LABS ORDERED: NONE REVIEWED AND INTERPRETED RESULTS: NONE IMAGING ORDERED: NONE TREATMENTS ORDERED: PATIENT'S PACKING WAS REMOVED AND WOUND WAS CLEANED USING NORMAL SALINE. PROCEDURES PERFORMED: NONE CRITICAL CARE TIME: NONE I HAVE DISCUSSED THE PATIENT WITH THE ATTENDING PHYSICIAN DR. TURNER AND HE AGREES WITH THE PATIENT'S PLAN OF CARE AND DISPOSITION. BASED ON HISTORY OF PRESENT ILLNESS, AND PHYSICAL EXAM, PATIENT WILL BE DISCHARGED HOME. SHARED DECISION MAKING: PATIENT INSTRUCTED TO FOLLOW UP WITH PRIMARY CARE PROVIDER IN 1-2 DAYS FOR RE-EVALUATION OF SYMPTOMS. PATIENT VERBALIZES UNDERSTANDING TO RETURN TO ED FOR NEW OR WORSENING SYMPTOMS OR IF FOLLOW UP WITH PCP CANNOT BE OBTAINED. PATIENT FEELS COMFORTABLE GOING HOME AT THIS TIME. ALL QUESTIONS ADDRESSED AT TIME OF DISCHARGE. Time of 1ST Reevaluation: 13:02 Reevaluation 1ST: Improved Patient Education/Counseling: Diagnosis, Treatment, Need For Follow Up Family Education/Counseling: Diagnosis, Treatment, Need For Follow Up Medical Screening: No EMC Exist At This Time Departure 1 Departure Time of Disposition: 13:02 Impression: Primary Impression: Encounter for wound re-check Disposition: 01 HOME / SELF CARE / HOMELESS Condition: Stable Additional Instructions: FOLLOW-UP WITH PCP IN 1 TO 2 DAYS. RETURN TO ED FOR ANY NEW OR WORSENING SYMPTOMS. Discharged With: Self Critical Care Note Critical Care Time?: No Stability Stability form required: No I personally scribed for JENNIFER ORTIZ ([email or web address]) on 07/26/24 at 12:57. E lectronically submitted by Marlon Krishna ([email or web address]). JENNIFER ORTIZ Jul 26, 2024 12:57
[2024-07-26 13:01] VITALS: BP 137/67; PULSE 78; RESP 17; TEMP 98.8; O2SAT 97
== END 2024-07-26 13:03 | disposition home or self-care (01) ==
LOC: ER 11:52
DX: Z48.00 Encounter for change or removal of nonsurgical wound dressing (principal); F17.210 Nicotine dependence, cigarettes, uncomplicated